=== PATIENT | male | born 1975 | race Caucasian/White ===

== ENCOUNTER 2016-08-27 04:27 | Emergency (ER) | payer OTHER ==
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
--- NOTE | 2016-08-27 07:59 | ED ORDER SUMMARY ---
..... Patient: RUEL DEAN OrderSheet [facility] VisitID: [id number] [place] [address] 40y, M Registration Date/Time: 08/27/2016 ORDER SHEET Weight: 83.9 kg (stated) Allergies: No Known Drug Allergy GENERAL ORDERS: Shoulder 2V or more Right Urgent (04:37 08/27/2016 Lindsey Martinez) (Ack 4:41 Isaiah) (4:49 RCollier R.N.) Lumbar Spine 2 or 3V Urgent (04:37 08/27/2016 Lindsey Martinez) (Ack 4:41 Isaiah) (4:49 RCollier R.N.) Wrist 3 or 4V Right Urgent (04:37 08/27/2016 Lindsey Martinez) (Ack 4:41 Isaiah) (4:49 RCollier R.N.) CBC w Diff Urgent (04:41 08/27/2016 Lindsey Martinez) (4:41 CFalkner R.N.) CMP Urgent (04:41 08/27/2016 Lindsey Martinez) (4:41 CFaparker R.N.) UA-Culture if indicated Urgent (04:41 08/27/2016 Lindsey Martinez) (Ack 5:47 Isaiah) (7:25 JSlizeck R.N.) Urine Drug Screen Urgent (04:41 08/27/2016 Lindsey Martinez) (Ack 5:47 Isaiah) (7:25 JSimbeck R.N.) Splint (UE) (Right) (Ulnar Gutter) (05:55 08/27/2016 Lindsey Martinez) (6:31 Isaiah) CT Abd/Pel w Cont (No) (23/1.0) (Left flank) Urgent (06:24 08/27/2016 Lindsey Martinez) (Ack 6:31 Isaiah) (6:53 GUnmagui) CBC w Diff Urgent (07:11 08/27/2016 Lindsey Martinez) (Ack 7:13 IJurca ER Tech1) (7:25 JSimbeck R.N.) PT with INR Urgent (07:11 08/27/2016 Lindsey Martinez) (Ack 7:13 IJurca ER Tech1) (7:25 Ange R.N.) PTT Urgent (07:11 08/27/2016 Lindsey Martinez) (Ack 7:13 IJurca ER Tech1) (7:25 Ange R.N.) MEDICATION ORDERS: IV FLUIDS: Toradol IV 30 mg (NOW) (04:40 08/27/2016 Lindsey Martinez) (4:44 Zelalem R.N.) IV Saline Lock (04:41 08/27/2016 Lindsey Martinez) (Ack 4:44 Zelalem R.N.) (7:25 Ange R.N.) Morphine IV 4 mg (HIGH ALERT MEDICATION, NOW) (05:56 08/27/2016 Lindsey Martinez) (6:05 Irene R.N.) IV NS : initial bolus none -, then 1000 mL/hr for X1 (NOW) (07:25 08/27/2016 Lindsey Martinez) (7:51 Ange R.N.) ORDER SHEET NOTES: [Electronically signed by Kervin Trent Dr. (09:56 08/27/2016)] [Electronically signed by Kike Carrasquillo R.N. (11:28 08/27/2016)] [Electronically locked/signed by Kike Carrasquillo R.N. (11:08/27/2016)]
--- NOTE | 2016-08-27 07:59 | ED ORDER SUMMARY ---
..... Patient: RUEL DEAN OrderSheet [facility] VisitID: [id number] [place] [address] 40y, M Registration Date/Time: 08/27/2016 ORDER SHEET Weight: 83.9 kg (stated) Allergies: No Known Drug Allergy GENERAL ORDERS: Shoulder 2V or more Right Urgent (04:37 08/27/2016 Lindsey Martinez) (Ack 4:41 Isaiah) (4:49 RCollier R.N.) Lumbar Spine 2 or 3V Urgent (04:37 08/27/2016 Lindsey Martinez) (Ack 4:41 Isaiah) (4:49 RCollier R.N.) Wrist 3 or 4V Right Urgent (04:37 08/27/2016 Lindsey Martinez) (Ack 4:41 Isaiah) (4:49 RCollier R.N.) CBC w Diff Urgent (04:41 08/27/2016 Lindsey Martinez) (4:41 CFalkner R.N.) CMP Urgent (04:41 08/27/2016 Lindsey Martinez) (4:41 CFaparker R.N.) UA-Culture if indicated Urgent (04:41 08/27/2016 Lindsey Martinez) (Ack 5:47 Isaiah) (7:25 JSlizeck R.N.) Urine Drug Screen Urgent (04:41 08/27/2016 Lindsey Martinez) (Ack 5:47 Isaiah) (7:25 JSimbeck R.N.) Splint (UE) (Right) (Ulnar Gutter) (05:55 08/27/2016 Lindsey Martinez) (6:31 Isaiah) CT Abd/Pel w Cont (No) (23/1.0) (Left flank) Urgent (06:24 08/27/2016 Lindsey Martinez) (Ack 6:31 Isaiah) (6:53 GUnmagui) CBC w Diff Urgent (07:11 08/27/2016 Lindsey Martinez) (Ack 7:13 IJurca ER Tech1) (7:25 JSimbeck R.N.) PT with INR Urgent (07:11 08/27/2016 Lindsey Martinez) (Ack 7:13 IJurca ER Tech1) (7:25 Ange R.N.) PTT Urgent (07:11 08/27/2016 Lindsey Martinez) (Ack 7:13 IJurca ER Tech1) (7:25 Ange R.N.) MEDICATION ORDERS: IV FLUIDS: Toradol IV 30 mg (NOW) (04:40 08/27/2016 Lindsey Martinez) (4:44 Zelalem R.N.) IV Saline Lock (04:41 08/27/2016 Lindsey Martinez) (Ack 4:44 Zelalem R.N.) (7:25 Ange R.N.) Morphine IV 4 mg (HIGH ALERT MEDICATION, NOW) (05:56 08/27/2016 Lindsey Martinez) (6:05 Irene R.N.) IV NS : initial bolus none -, then 1000 mL/hr for X1 (NOW) (07:25 08/27/2016 Lindsey Martinez) (7:51 Ange R.N.) ORDER SHEET NOTES: [Electronically signed by Kervin Trent Dr. (09:56 08/27/2016)] [Electronically signed by Kike Carrasquillo R.N. (11:28 08/27/2016)] [Electronically locked/signed by Kike Carrasquillo R.N. (11:08/27/2016)]
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
--- NOTE | 2016-08-27 11:29 | ED MAR SUMMARY ---
..... Medication Administration Record [facility] [address] [place] [address] Patient: RUEL DEAN Visit ID: [id number] 40y, M Weight: 83.9 kg Height/Length: 70.5 in BMI: 26.2 ALLERGIES: No Known Drug Allergy Given 04:44 08/27/2016 Jackie Candelaria RRommel Medication Administered: TORADOL [IVP], Dose: 30 mg IVP over 1 minute(s), Site: #1 left AC. Medication Ordered: Toradol IV 30 mg (NOW). Given 06:05 08/27/2016 Sheriff Rock R.N. Medication Administered: MORPHINE [IVP], Dose: 4 mg IVP, Site: #1 left AC. Medication Ordered: Morphine IV 4 mg (HIGH ALERT MEDICATION, NOW). Start 07:45 08/27/2016 Kike Carrasquillo R.N., Stop 08:50 08/27/2016 Kike Carrasquillo R.N. Medication Administered: IV NS (SALINE), Dose: IV Fluids over 1 hour(s), Rate: 1000 mL/hr, Dispensed: 1000 mL bag, Site: #1 left AC. Medication Ordered: IV NS : initial bolus none -, then 1000 mL/hr for X1 (NOW).
--- NOTE | 2016-08-27 11:29 | ED DISCHARGE INSTRUCTIONS ---
Patient: RUEL DEAN General Instructions [facility] VisitID: [id number] [address] [place] [address] 40y, M Registration Date/Time: 08/27/2016 L1 transverse process fracture; L2 transverse process fracture; L4 transverse process fracture. No associated neurological deficit. Closed nondisplaced transverse fracture of the distal right ulna. Single hematoma to the lower back. (Electronically signed by Kervin Trent Dr. 08/27/2016 9:56)
--- NOTE | 2016-08-27 11:29 | ED MED RECONCILIATION SUMMARY ---
Patient: RUEL DEAN Medication Reconciliation Report [facility] VisitID: [id number] [place] [address] 40y, M Registration Date/Time: 08/27/2016 Weight: 83.9 kg Height/Length: 60 in. BMI: 26.2 ALLERGIES: No Known Drug Allergy The patient's Home Medications are listed below: NONE. The source(s) of the original Home Medication information: Not obtained. The following Medications were given to the patient in the Emergency Department: Toradol [IVP] IVP 30 mg, administered: 08/27/2016 4:44:00 AM Morphine [IVP] IVP 4 mg, administered: 08/27/2016 6:05:00 AM IV NS IV Fluids bolus 0, then 1000 mL/hr, administered: 08/27/2016 7:45:00 AM The following Medications were prescribed to the patient: None.
--- NOTE | 2016-08-27 11:29 | ED MED RECONCILIATION SUMMARY ---
Patient: RUEL DEAN Medication Reconciliation Report [facility] VisitID: [id number] [place] [address] 40y, M Registration Date/Time: 08/27/2016 Weight: 83.9 kg Height/Length: 60 in. BMI: 26.2 ALLERGIES: No Known Drug Allergy The patient's Home Medications are listed below: NONE. The source(s) of the original Home Medication information: Not obtained. The following Medications were given to the patient in the Emergency Department: Toradol [IVP] IVP 30 mg, administered: 08/27/2016 4:44:00 AM Morphine [IVP] IVP 4 mg, administered: 08/27/2016 6:05:00 AM IV NS IV Fluids bolus 0, then 1000 mL/hr, administered: 08/27/2016 7:45:00 AM The following Medications were prescribed to the patient: None.
--- NOTE | 2016-08-27 11:29 | ED DISCHARGE INSTRUCTIONS ---
Patient: RUEL DEAN General Instructions [facility] VisitID: [id number] [address] [place] [address] 40y, M Registration Date/Time: 08/27/2016 L1 transverse process fracture; L2 transverse process fracture; L4 transverse process fracture. No associated neurological deficit. Closed nondisplaced transverse fracture of the distal right ulna. Single hematoma to the lower back. (Electronically signed by Kevrin Trent Dr. 08/27/2016 9:56)
--- NOTE | 2016-08-27 11:29 | ED MAR SUMMARY ---
..... Medication Administration Record [facility] [address] [place] [address] Patient: RUEL DEAN Visit ID: [id number] 40y, M Weight: 83.9 kg Height/Length: 70.5 in BMI: 26.2 ALLERGIES: No Known Drug Allergy Given 04:44 08/27/2016 Jackie Candelaria RRommel Medication Administered: TORADOL [IVP], Dose: 30 mg IVP over 1 minute(s), Site: #1 left AC. Medication Ordered: Toradol IV 30 mg (NOW). Given 06:05 08/27/2016 Sheriff Rock R.N. Medication Administered: MORPHINE [IVP], Dose: 4 mg IVP, Site: #1 left AC. Medication Ordered: Morphine IV 4 mg (HIGH ALERT MEDICATION, NOW). Start 07:45 08/27/2016 Kike Carrasquillo R.N., Stop 08:50 08/27/2016 Kike Carrasquillo R.N. Medication Administered: IV NS (SALINE), Dose: IV Fluids over 1 hour(s), Rate: 1000 mL/hr, Dispensed: 1000 mL bag, Site: #1 left AC. Medication Ordered: IV NS : initial bolus none -, then 1000 mL/hr for X1 (NOW).
== END 2016-08-27 09:02 | disposition short-term general hospital (02) ==
LOC: ED SRH 04:27
DX: S32.028A Other fracture of second lumbar vertebra, initial encounter for closed fracture (principal); S32.018A Other fracture of first lumbar vertebra, initial encounter for closed fracture; S32.048A Other fracture of fourth lumbar vertebra, initial encounter for closed fracture; S52.691A Other fracture of lower end of right ulna, initial encounter for closed fracture; S30.0XXA Contusion of lower back and pelvis, initial encounter; V28.4XXA Motorcycle driver injured in noncollision transport accident in traffic accident, initial encounter; Y93.9 Activity, unspecified; Y99.9 Unspecified external cause status; Y92.9 Unspecified place or not applicable